=== PATIENT | female | born 1935 | race Two or more races ===

== ENCOUNTER 2024-05-16 04:45 | Emergency (ER) | payer MEDICARE, OTHER ==
[~2024-05-16] VITALS: Ht 160 cm; Wt 59.0 kg
[2024-05-16 10:48] VITALS: BP 148/84; TEMP 97.8; O2SAT 100
== END 2024-05-16 10:48 | disposition home or self-care (01) ==
LOC: ER 04:48
DX: Z04.3 Encounter for examination and observation following other accident (principal); F03.90 Unspecified dementia, unspecified severity, without behavioral disturbance, psychotic disturbance, mood disturbance, and anxiety; I10 Essential (primary) hypertension; W18.39XA Other fall on same level, initial encounter; Y93.89 Activity, other specified; Y92.89 Other specified places as the place of occurrence of the external cause; Y99.8 Other external cause status
CPT/HCPCS: 70450-TC; 72125-TC; 82962-TC